=== PATIENT | female | born 1940 | race Caucasian/White ===

== ENCOUNTER 2020-05-01 10:37 | Outpatient (CLI) | payer MEDICARE, OTHER, SELFPAY ==
--- NOTE | ~2020-05-01 | MR_ITS ---
EXAMINATION: MR lumbar spine wo/w con DATE: 05/01/2020 11:57 INDICATION: Other intervertebral disc degeneration, lumbosacral. TECHNIQUE: Magnetic resonance imaging (MRI) of the lumbar spine was performed without and with 13 mL MultiHance intravenous contrast. Sequences included sagittal T2-weighted FSE, sagittal STIR FSE, and sagittal and axial T1-weighted FSE. Postcontrast sequences included axial T2-weighted FSE and axial a nd sagittal T1-weighted FS FSE. COMPARISON: Lumbar spine MRI 04/07/2017, 11/11/2014 FINDINGS: There is 12 degrees dextroscoliosis of thoracolumbar spine. There are changes of posterior fusion procedure from L3 to L5 with pedicle screws. There are changes of anterior fusion procedures a t L3-L4 and L4-L5 with interbody devices. There are hemangiomas in T10, T11, and T12 vertebral bodies . There is moderately decreased disc height at L1-L2 and severely decreased disc height at L2-L3. The distal spinal cord signal intensity is normal. The conus medullaris is at L1. There is peripheral di splacement of the cauda equina from L4 to S1 without change from 11/11/2014, consistent with arachnoid itis. The following disc levels are specifically discussed: L1-L2: The disc is bulging, asymmetric to the left. There is mild bilateral facet joint osteoarthriti s. There is mild bilateral neural foraminal stenosis. There is mild central canal stenosis. L2-L3: The disc is bulging. There is moderate right and mild left facet joint osteoarthritis. There i s mild bilateral neural foraminal stenosis. There is mild central canal stenosis. L3-L4: There is no facet joint hypertrophy. There is no neural foraminal stenosis. There is no centra l canal stenosis. L4-L5: There is mild left facet joint hypertrophy. There is mild bilateral neural foraminal stenosis. There is no central canal stenosis. L5-S1: The disc does not extend beyond the endplate margin. There is severe bilateral facet joint ost eoarthritis. There is no neural foraminal stenosis. There is no central canal stenosis. IMPRESSION: 1. Severe lumbar spondylosis, stable from 11/11/2014. 2. Arachnoiditis, stable from 11/11/2014. Reviewed, dictated and finalized at location A. NT EXPERIENCE CONSULTANT
[2020-05-01 11:23] LABS: Estimated Glomerular Filt Rate > 60
== END 2020-05-01 10:38 | disposition home or self-care (01) ==
PROVIDERS: PCP Family Medicine; Visit Provider Family Medicine
DX: M51.37 Other intervertebral disc degeneration, lumbosacral region (principal); M47.896 Other spondylosis, lumbar region
CPT/HCPCS: 72158; A9577

== ENCOUNTER 2021-06-14 08:17 | Emergency (ER) | payer MEDICARE, OTHER, SELFPAY ==
[2021-06-14 08:32] VITALS: BP 144/73; PULSE 106; RESP 20; TEMP 36.7; O2SAT 96
--- NOTE | 2021-06-14 09:19 | ED.URI ---
HPI - URI/Sore Throat General Chief Complaint: Upper Respiratory Infection Stated Complaint: headache nausea achey difficult breathing Source: patient and RN notes reviewed Mode of arrival: ambulatory History of Present Illness HPI Narrative: This is a 80-year-old female who presented to urgent care with complaints of a headache, diarrhea nausea, indigestion, body aches, shortness of breath and a productive cough with blood-tinged sputum that started yesterday. Ready to patient she took Protonix at home along with Tylenol and Compazine. Patient did note that she is having some shortness of breath. Patient tested for influenza which is negative also be tested for Covid PCR. Related Data Home Medications Medication Instructions Recorded Confirmed metoprolol tartrate 25 mg tablet 37.5 mg PO DAILY tablet 06/23/19 06/14/21 torsemide 20 mg tablet 20 mg PO QAM 04/27/21 06/14/21 Allergies Allergy/AdvReac Type Severity Reaction Status Date / Time adhesive tape Allergy Intermediate Rash Verified 06/14/21 09:06 diazepam Allergy Intermediate HYPERACTIVE Verified 06/14/21 09:06 /ANXIETY pregabalin [From Lyrica] AdvReac Mild Depression Verified 06/14/21 09:06 lansoprazole AdvReac Unknown Nausea Verified 06/14/21 09:06 trazodone AdvReac Unknown Unknown Verified 06/14/21 09:06 warfarin AdvReac Unknown Unknown Verified 06/14/21 09:06 Review of Systems Review of Systems: A 14 organ system Review of Systems was performed and pertinent positives included in the HPI, otherwise remaining ROS is negative. [facility] Past Medical History Medical History Acute cystitis Anxiety BMI 26.0-26.9,adult BMI 27.0-27.9,adult Chronic pain Cramps of lower extremity Depression with anxiety Disc disease, degenerative, lumbar or lumbosacral Essential (primary) hypertension GERD (gastroesophageal reflux disease) Heart disease High cholesterol HTN (hypertension) Hyperlipidemia, unspecified Lung cancer Need for vaccination Neuropathy involving both lower extremities Paroxysmal atrial fibrillation Primary osteoarthritis of both hips Restless leg syndrome Vitamin D deficiency, unspecified Surgical History Surgical History History of angiography 1998 History of laparoscopic cholecystectomy 2002 History of lobectomy of lung Right upper lung due to lung cancer History of lumbar fusion Per Patient extensive lumbar back surgery History of lumpectomy of right breast Excisional biopsy History of total abdominal hysterectomy 1986 at [facility] Hx of bilateral cataract extraction Hx of hemorrhoidectomy 2007 [facility] Hx of lipoma Large abdominal Lipoma Family History Family History Sibling Cerebrovascular accident Family history of lymphoma Skin cancer Mother Family history of lymphoma Family history of coronary artery disease Father Family history of Alzheimer's disease Hypertension Son History of coronary artery bypass surgery Daughter Ulcerative colitis Social History Social History Smoking packs per day: 1 Smoking cigarettes per day: 20.0 Years smoked: 30 Smoking pack-years: 30.00 Tobacco type: cigarettes Second hand tobacco smoke exposure: No Alcohol intake: never Substance use: never Substance use type: does not use 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 HEAD: normocephalic, atraumatic. EYES: PERRL. Sclera clear/white. Vision is grossly intact. EARS: External ears normal, auditory canals clear and without drainage, TMs normal without perforation. Hearing grossly intact. NOSE: External nose normal wi
== END 2021-06-14 09:36 | disposition home or self-care (01) ==
PROVIDERS: Emergency Provider Nurse Practitioner; PCP Family Medicine
DX: B34.9 Viral infection, unspecified (principal); I10 Essential (primary) hypertension; K21.9 Gastro-esophageal reflux disease without esophagitis; E78.00 Pure hypercholesterolemia, unspecified; E78.5 Hyperlipidemia, unspecified; G62.9 Polyneuropathy, unspecified; I48.0 Paroxysmal atrial fibrillation; M16.0 Bilateral primary osteoarthritis of hip; G25.81 Restless legs syndrome; E55.9 Vitamin D deficiency, unspecified; Z85.118 Personal history of other malignant neoplasm of bronchus and lung; Z90.2 Acquired absence of lung [part of]; M51.36 Other intervertebral disc degeneration, lumbar region; M51.37 Other intervertebral disc degeneration, lumbosacral region; F17.210 Nicotine dependence, cigarettes, uncomplicated; Z98.42 Cataract extraction status, left eye; Z98.41 Cataract extraction status, right eye
CPT/HCPCS: 87804; 99213; G0463

== ENCOUNTER → 2021-06-15 02:38 | Outpatient (CLI) | payer MEDICARE, OTHER, SELFPAY ==
[2021-06-16 03:58] LABS: SARS-CoV-2 RNA PCR Negative
== END ==
PROVIDERS: PCP Family Medicine; Visit Provider Nurse Practitioner
DX: R68.89 Other general symptoms and signs (principal); Z20.822 Contact with and (suspected) exposure to COVID-19
CPT/HCPCS: C9803; U0003; U0005

== ENCOUNTER 2021-06-17 04:52 | Inpatient (IN) | payer MEDICARE, OTHER, SELFPAY ==
[2021-06-17] VITALS (105 sets, daily range): BP systolic 93–148; BP diastolic 40–112; PULSE 101–230; RESP 16–46; TEMP 36.9; O2SAT 88–100; BMI 29.1
--- NOTE | ~2021-06-17 | XR_ITS ---
EXAMINATION: XR chest 1V portable EXAM DATE: 06/17/2021 05:49 INDICATION: SOA . Shortness of air. TECHNIQUE: Portable AP frontal chest x-ray was obtained. Correlation is made to CT chest 06/13/2018. FINDINGS: There was right upper lobe mass on prior chest CT 2017. Reportedly patient has had interval lobectomy. There is dense right upper lobe consolidation which could be bacterial pneumonia. Blunted right costophrenic recess, probably small to moderate pleural effusion but may have chronic blunting as well from partial pneumonectomy. Left lung is clear. The cardiomediastinal silhouette is prominen t but magnified on this AP technique. There is no pneumothorax suspected. There are mild bony degener ative changes. IMPRESSION: 1. Dense right upper lobe consolidation, probably bacterial pneumonia. Other etiologies, underlying c ancer not excludable. 2. Small to moderate right pleural effusion. Reviewed, dictated and finalized at location A. RTISING SALES EXECUTIVE IMPRESSION: 1. Dense right upper lobe consolidation, probably bacterial pneumonia. Other et iologies, underlying cancer not excludable. 2. Small to moderate right pleural effusion.
--- NOTE | ~2021-06-17 | CT_ITS ---
EXAMINATION: CTA chest PE abdomen pel EXAM DATE: 06/17/2021 08:41 INDICATION: Dense right upper lobe consolidation. TECHNIQUE: Spiral CTA of the chest (pulmonary arteries) was performed with 100 cc Omnipaque 350 intr avenous contrast injection. Images were acquired during the pulmonary arterial phase. Coronal maxi mum intensity projection 3D-reconstructions were created by the technologist on dedicated workstation . Axial, coronal and sagittal reformatted images were reviewed. Spiral CT of the abdomen and pelvis was then performed with the same intravenous contrast injection. Axial, coronal and sagittal reform atted images were reviewed. The dose-length product (DLP) for this examination was 1134.51 mGy-cm. The exposure was tailored according to patient size (auto mA exposure control), and iterative recons truction (ASIR) was used as additional dose reduction technique. There is no prior study for compari son. FINDINGS: CHEST: Pulmonary arteries are well opacified and without intraluminal filling defects. No thoracic aortic dissection. There may be right upper lobectomy, resection of previously seen right upper lob e mass. There is dense consolidation in the right middle lobe, multifocal right perihilar airspace di sease. The left lung has small amount of pneumonitis. Probably bacterial pneumonia. Underlying cancer not excludable. Clinical correlation and follow-up to resolution is indicated. There is small to mod erate right pleural effusion with adjacent segmental right lower lobe atelectasis. There is mild emph ysema. Tracheobronchial tree is patent. There is no mediastinal, hilar or axillary lymphadenopathy . There is no pneumothorax. There is cardiomegaly. There is moderate coronary arterial calcifica tion, arterial sclerosis. ABDOMEN PELVIS: Small regions of liver and right renal scarring. Lobular splenic tissue. Adrenal gla nds, pancreas are unremarkable. Gallbladder not identified, patient likely has had cholecystectomy. Portal and splenic veins are patent. Kidneys enhance symmetrically. There is no hydronephrosis. The uterus is not identified and has likely been surgically resected. The bladder is unremarkable. There is no retroperitoneal or pelvic lymphadenopathy. There is moderate scattered arteriosclerotic disease. The appendix is normal. There is ascending and transverse colonic submucosal fatty deposition could i ndicate history of chronic inflammation, but no acute edema on this exam. There is mild sigmoid colon ic diverticulosis. There is no adjacent inflammatory change to suggest diverticulitis. The stomach a nd small bowel are unremarkable. There is expected amount of colonic stool. No free intraperitonea l gas. Several thoracic vertebral body hemangiomas. There is lumbar fusion L3-5. IMPRESSION: 1. Probable right upper lobectomy. Dense right middle lobe and perihilar consolidation probably bact erial pneumonia. Follow-up to resolution is indicated to exclude underlying cancer recurrence. 2. Small to moderate right pleural effusion with adjacent segmental atelectasis. 3. Mild colonic diverticulosis. Other chronic abdominal findings. 4. Mild emphysema. 5. No pulmonary emboli. Reviewed, dictated and finalized at location A. FITTER IMPRESSION: 1. Probable right upper lobectomy. Dense right middle lobe and perihilar conso lidation probably bacterial pneumonia. Follow-up to resolution is indicated to exclude underlying cancer recurrence. 2. Small to moderate right pleural effusion with adjacent segmental atelectasi s. 3. Mild colonic diverticulosis. Other chronic abdominal findings. 4. Mild emphysema. 5. No pulmonary emboli.
--- NOTE | ~2021-06-17 | XR_ITS ---
EXAMINATION: XR chest 1V portable EXAM DATE: 06/18/2021 18:15 INDICATION: Shortness of breath. Right upper lobectomy. TECHNIQUE: Portable AP frontal chest x-ray was obtained. Comparison is made to prior examination from 06/17/2021. FINDINGS: There is cardiomegaly. Dense right upper lung zone consolidation again noted. Development o f moderate amount of left-sided airspace disease as well. No pneumothorax. Small to moderate right pl eural effusion. There are bony degenerative changes. IMPRESSION: 1. Persistent dense right upper lung zone pneumonia. 2. Progression of now moderate left-sided pneumonia. 3. Small to moderate right pleural effusion. 4. Cardiomegaly. Reviewed, dictated and finalized at location A. INUITY TESTER
--- NOTE | 2021-06-17 05:02 | ECG_ITS ---
Measurements Intervals [place] Rate: 227 P: NM: 0 QRS: 3 QRSD: 124 T: 115 QT: 181 QTc: 352 Interpretive Statements ATRIAL FIBRILLATION WITH RAPID VENTRICULAR RESPONSE VENTRICULAR PREMATURE COMPLEX LEFT BUNDLE BRANCH BLOCK BASELINE WANDER- III, AVF, V3, V6 ABNORMAL ECG Electronically Signed On 06-17-2021 7:25:28 CLAIM TAKER by Francisco Walker D.O.
--- NOTE | 2021-06-17 05:05 | PC.NURSE ---
15 mg diltiazem administered per [facility] Dr. Ramirez at 0500.
--- NOTE | 2021-06-17 05:11 | PC.NURSE ---
10 mg diltiazem given per TUNDE ANDERSON at this time.
--- NOTE | 2021-06-17 05:17 | PC.NURSE ---
Diltiazem drip 5 mg/hr per ERP James ANDERSON at this time.
[2021-06-17 05:24] LABS: Hematocrit 38.3 % (37.0-47.0); Hemoglobin 12.8 g/dL (12.0-15.0); Mean Corpuscular HGB Conc 33.4 g/dl (32-36); Mean Corpuscular Hemoglobin 31.4 pg (26-34); Mean Corpuscular Volume 94.1 fl (80-100); Mean Platelet Volume 11.4 fl (7.4-10.4); Platelet Count Result 321 k/mm3 (150-375); Red Blood Count 4.07 M/mm3 (4.2-5.4); Red Cell Distribution Width 15.6 % (11.5-14.5); White Blood Count 37.4 K/mm3 (4.5-10.0)
[2021-06-17] MEDS: dilTIAZem HCl INJ 25 MG/5 ML VIAL 10 MG IV PUSH (05:25)
[2021-06-17] MEDS: dilTIAZem 100 MG/100 ML 100 MG/100 ML BAG (05:26)
[2021-06-17] MEDS: dilTIAZem HCl INJ 25 MG/5 ML VIAL 15 MG IV PUSH (05:28)
[2021-06-17 05:35] LABS: INR 1.5; Prothrombin Time 17.8 Seconds (11.1-14.7)
[2021-06-17 05:36] LABS: Partial Thromboplastin Time 38.3 SECONDS (22.3-36.8)
--- NOTE | 2021-06-17 05:36 | PC.NURSE ---
Per EDP Dr Ramirez at bedside - fluid bolus initiated at KVO. NS infusing.
--- NOTE | 2021-06-17 05:42 | ED.GENADULT ---
HPI - General Adult General Chief complaint: Shortness of Breath/Dyspnea <Humberto Ramirez MD - Last Filed: 06/17/21 07:39> Stated complaint: dyspnea, tachycardia, myalgias <Humberto Ramirez MD - Last Filed: 06/17/21 07:39> Time Seen by Provider: 06/17/21 04:53 <Humberto Ramirez MD - Last Filed: 06/17/21 07:39> History of Present Illness HPI narrative: Patient is a 80-year-old female who presents ER by EMS for shortness of breath. Patient has recently been suffering from a infectious illness. She was seen in urgent care and had a negative Covid test. Patient has been having fevers at home has also been having cough. She worsened tonight and called for an ambulance. In route patient was found to have heart rate in the 230s. She received adenosine x1 which slowed her heart rate but then it immediately came back up to the 200s. Patient cannot identify aggravating or alleviating factors. She is on torsemide at home and takes metoprolol 37.5 mg daily. <Humberto Ramirez MD - Last Filed: 06/17/21 07:39> Related Data Home medications: Home Medications Medication Instructions Recorded Confirmed metoprolol tartrate 25 mg tablet 37.5 mg PO DAILY tablet 06/23/19 06/14/21 torsemide 20 mg tablet 20 mg PO QAM 04/27/21 06/14/21 ezetimibe-simvastatin [Vytorin tablet DAILY 06/17/21 10-40] rivaroxaban [Xarelto] mg 06/17/21 <Humberto Ramirez MD - Last Filed: 06/17/21 07:39> Allergies/adverse reactions: Allergies Allergy/AdvReac Type Severity Reaction Status Date / Time adhesive tape Allergy Intermediate Rash Verified 06/17/21 05:29 diazepam Allergy Intermediate HYPERACTIVE Verified 06/17/21 05:29 /ANXIETY pregabalin [From Lyrica] AdvReac Mild Depression Verified 06/17/21 05:29 lansoprazole AdvReac Unknown Nausea Verified 06/17/21 05:29 trazodone AdvReac Unknown Unknown Verified 06/17/21 05:29 warfarin AdvReac Unknown Unknown Verified 06/17/21 05:29 <Humberto Ramirez MD - Last Filed: 06/17/21 07:39> Review of Systems Review of Systems: ROS unobtainable: Yes unobtainable due to medical condition <Humberto Ramirez MD - Last Filed: 06/17/21 07:39> COUNT INCLUDES THE [facility] Past Medical History Medical History: Medical History Acute cystitis Anxiety BMI 26.0-26.9,adult BMI 27.0-27.9,adult Chronic pain Cramps of lower extremity Depression with anxiety Disc disease, degenerative, lumbar or lumbosacral Essential (primary) hypertension GERD (gastroesophageal reflux disease) Heart disease High cholesterol HTN (hypertension) Hyperlipidemia, unspecified Lung cancer Need for vaccination Neuropathy involving both lower extremities Paroxysmal atrial fibrillation Primary osteoarthritis of both hips Restless leg syndrome Vitamin D deficiency, unspecified <Humberto Ramirez MD - Last Filed: 06/17/21 07:39> Surgical History Surgical History: Surgical History History of angiography 1998 History of laparoscopic cholecystectomy 2002 History of lobectomy of lung Right upper lung due to lung cancer History of lumbar fusion Per Patient extensive lumbar back surgery History of lumpectomy of right breast Excisional biopsy History of total abdominal hysterectomy 1986 at [facility] Hx of bilateral cataract extraction Hx of hemorrhoidectomy 2007 [facility] Hx of lipoma Large abdominal Lipoma <Humberto Ramirez MD - Last Filed: 06/17/21 07:39> Family History Family History: Family History Sibling Cerebrovascular accident Family history of lymphoma Skin cancer Mother Family history of lymphoma Family history of coronary artery disease Father Family history of Alzheimer's disease Hypertension Son History of coronary artery bypass surgery Daughter Ulcerative colitis <Layla Washington
[2021-06-17] MEDS: SODIUM CHLORIDE 0.9% IV 1,000 ML 999 ML IV CONT ×2 (05:53→05:57)
[2021-06-17 05:58] LABS: Band Neutrophils Percent 9 % (0-6); Lymphocytes Absolute Manual 5.23 K/mm3 (1.1-4.5); Metamyelocytes Percent 3 %; Monocytes Absolute Manual 1.49 K/mm3 (0.1-0.90); Monocytes Percent Manual 4 % (3-9); Neutrophils Absolute Manual 29.54 K/mm3 (1.7-7.2); Neutrophils Percent Manual 70 % (46-73); Total Cells Counted 100
[2021-06-17 05:59] LABS: Anisocytosis 1+ (NORMAL); Atypical Lymphocytes Present; Platelet Estimate Adequate (Adequate)
[2021-06-17 06:03] LABS: Lactic Acid Reflex 10.8 mmol/L (0.7-2.1)
[2021-06-17] MEDS: PIPERACILLIN/TAZOBACTAM SOD 4.5 GM in SODIUM CHLORIDE 0.9% IV 100 ML 200 ML IVPB (06:29)
--- NOTE | 2021-06-17 07:00 | PC.NURSE ---
Assumed care of pt. at this time. report from MICHAEL Jones.
[2021-06-17] MEDS: AMIODARONE 150 MG/D5W 100 ML 150 MG/100 ML BAG 600 MG IV CONT (07:32)
[2021-06-17 07:52] LABS: Albumin Level 3.1 g/dL (3.5-5.1); Alkaline Phosphatase 277 U/L (38-126); Anion Gap 17 mmol/L (8-16); Aspartate Amino Transferase 287 U/L (14-36); Bilirubin,Total 1.2 mg/dL (0.2-1.3); Blood Urea Nitrogen 19 mg/dL (7-17); Calcium 8.8 mg/dL (8.4-10.2); Carbon Dioxide 15 mmol/L (22-30); Chloride 104 mmol/L (98-107); Estimated Glomerular Filt Rate 43; Glucose 152 mg/dL (65-110); Potassium 2.9 mmol/L (3.4-5.0); Sodium 136 mmol/L (137-145)
[2021-06-17 07:59] LABS: NT Pro B Type Natriuretic Pept 4530 pg/mL (5-100); Troponin I 0.237 ng/mL (0.000-0.034)
[2021-06-17 08:20] LABS: Reflex Lactic Acid Yes or No Add Lactic
[2021-06-17 08:20] LABS: CRP > 45.0 mg/dL (<1.0)
[2021-06-17 08:34] LABS: Alanine Aminotransferase 116 U/L (4-35)
--- NOTE | 2021-06-17 09:02 | PC.NURSE ---
ERP requesting Pt. be weened off of bipap. ED respiratory called
[2021-06-17 09:10] LABS: Lactic Acid 5.6 mmol/L (0.7-2.1)
[2021-06-17] MEDS: AMIODARONE 360 MG/D5W 200 ML 360 MG/200 ML BAG 33.33 MG IV CONT (09:24)
--- NOTE | 2021-06-17 09:52 | PC.NURSE ---
Pt. vancomycin had a hole in the bag resulting in a late med.
[2021-06-17] MEDS: ALBUTEROL SULFATE NEB 2.5 MG/3 ML INH INHALATION ×2 (10:07→19:02)
[2021-06-17] MEDS: HYDROcodone/acetaminophen (*CRX) 5-325 MG TABLET 1 TAB PO (12:07)
[2021-06-17 12:26] LABS: EDCOVIDSCREEN Negative (Negative)
[2021-06-17 12:53] LABS: Hematocrit 34.3 % (37.0-47.0); Hemoglobin 11.5 g/dL (12.0-15.0); Mean Corpuscular HGB Conc 33.5 g/dl (32-36); Mean Corpuscular Hemoglobin 30.9 pg (26-34); Mean Corpuscular Volume 92.2 fl (80-100); Mean Platelet Volume 11.3 fl (7.4-10.4); Platelet Count Result 256 k/mm3 (150-375); Red Blood Count 3.72 M/mm3 (4.2-5.4); Red Cell Distribution Width 15.8 % (11.5-14.5); White Blood Count 28.3 K/mm3 (4.5-10.0)
[2021-06-17 12:53] LABS: INR 1.9
[2021-06-17 12:54] LABS: Partial Thromboplastin Time 41.1 SECONDS (22.3-36.8)
[2021-06-17 13:08] LABS: Lactic Acid Reflex 8.4 mmol/L (0.7-2.1)
[2021-06-17 13:31] LABS: Alanine Aminotransferase 563 U/L (4-35); Albumin Level 3.3 g/dL (3.5-5.1); Alkaline Phosphatase 241 U/L (38-126); Anion Gap 17 mmol/L (8-16); Bilirubin,Total 1.4 mg/dL (0.2-1.3); Blood Urea Nitrogen 21 mg/dL (7-17); Calcium 8.1 mg/dL (8.4-10.2); Carbon Dioxide 15 mmol/L (22-30); Chloride 100 mmol/L (98-107); Estimated CRCL calculation 34 ml/min; Estimated Glomerular Filt Rate 43; Glucose 237 mg/dL (65-110); Potassium 3.4 mmol/L (3.4-5.0); Sodium 132 mmol/L (137-145)
[2021-06-17 13:44] LABS: CRP 41.9 mg/dL (<1.0)
[2021-06-17 13:45] LABS: Aspartate Amino Transferase 1610 U/L (14-36)
[2021-06-17 13:52] LABS: Band Neutrophils Percent 10 % (0-6); Lymphocytes Absolute Manual 0.56 K/mm3 (1.1-4.5); Neutrophils Absolute Manual 27.73 K/mm3 (1.7-7.2); Neutrophils Percent Manual 88 % (46-73); Total Cells Counted 100
[2021-06-17 13:53] LABS: Burr Cells 2+ (NORMAL); Platelet Estimate Adequate (Adequate)
[2021-06-17 13:54] LABS: Poikilocytosis 1+ (NORMAL)
--- NOTE | 2021-06-17 13:59 | PM.CNCAR ---
Assessment and Plan Additional Plan - AFIB WITH RVR - severe sepsis most likely secondary to pneumonia *- lactic acidosis. - elevated liver enzymes this 80-year-old female with past history of atrial fibrillation on Xarelto and history of lung cancer that was treated by surgery couple years ago, who presents to the hospital with fever, chills, cough, shortness of breath and elevated lactic acid, leukocytosis and imaging suggestive of a right upper lobe pneumonia. At this time would recommend to continue IV amiodarone drip. She is expected to be bradycardic is due to a normal response to sepsis. Recommend to continue Xarelto. would hold off starting antihypertensives at this time until she is more stable. continue antibiotics. History of Present Illness History of Present Illness Consult date/time: date of service 06/17/21 13:59 Requesting physician: Arcadio Fuentes MD Consult reason: atrial fibrillation Reason For Visit: dyspnea, tachycardia, myalgias Narrative: this 80-year-old female who follows up with Dr. montero and who has a past medical history of atrial fibrillation, history of lung cancer status post upper right lobectomy with no chemoradiation, history of balloon angioplasty who comes to the ED feeling sick for about a week. She did have fevers, congestion, cough, was seen in an urgent care last week and tested negative for COVID. Apparently arrived on 6 L oxygen to the emergency room, was saturating 88% on room air . she was experiencing central chest pain however her heart rate was reported to be 220 beats per minute when she arrived and was in AFib with RVR. Was given IV diltiazem, 2 L of normal saline, and apparently adenosine as well. currently her heart rate 120 beats per minute and in AFib. She is resting comfortably in bed and denies chest pain at this time. She still should feeling short of breath however is much better with the oxygen. Denied lower limb edema, dizziness or syncope. on review of investigations she was noticed to have elevated lactic acid at 10.8, and then 8.5. evidence of acute kidney injury with creatinine 1.2 and baseline 0.8 elevated liver enzymes with AST 1600 and ALT 560, elevated proBNP at 4000 WBC 37K CTA CHEST ,ABD:1. Probable right upper lobectomy. Dense right middle lobe and perihilar consolidation probably bacterial pneumonia. Follow-up to resolution is indicated to exclude underlying cancer recurrence. 2. Small to moderate right pleural effusion with adjacent segmental atelectasis. 3. Mild colonic diverticulosis. Other chronic abdominal findings. 4. Mild emphysema. 5. No pulmonary emboli. Review of Systems Constitutional: Constitutional: Reports chills, Reports fever(s) and Reports poor appetite Eyes: Eyes: Denies eye discharge, Denies loss of vision, Denies eye pain and Denies photophobia ENT: Denies dizziness, Denies epistaxis, Denies nasal congestion and Denies sore throat Cardiovascular: Cardiovascular: Reports chest pain, Denies syncope, Denies pedal edema, Denies leg edema, Reports palpitations, Reports dyspnea, Reports dyspnea on exertion and Denies orthopnea Respiratory: Respiratory: Reports cough, Reports dyspnea, Reports dyspnea on exertion and Denies wheezing Gastrointestinal: Gastrointestinal: Denies abdominal pain, Denies diarrhea, Denies nausea and Denies vomiting Genitourinary: Genitourinary: Denies hematuria, Denies genital lesions and Denies dysuria Musculoskeletal: Musculoskeletal: Denies arthralgias, Denies joint swelling and Denies numbness Integumentary/Breasts: Skin/Breast: Denies pruritus and Denies rash Neurologic: Denies dizziness, Denies syncope, Denies loss of vision and Denies numbness Psychiatric: Psychiatric: Denies anxiety and Denies depression Endocrine: Endocrine: Denies cold intolerance, Denies heat intolerance and Denies palpitations Hematologic/Lymphatic: Hematologic/Lymphatic: Denies easy bleeding and De
[2021-06-17] MEDS: SODIUM CHLORIDE 0.9% IV 1,000 ML 125 ML IV CONT (14:01)
[2021-06-17 15:02] LABS: Troponin I 0.455 ng/mL (0.000-0.034)
[2021-06-17] MEDS: AMIODARONE 360 MG/D5W 200 ML 360 MG/200 ML BAG 16.67 MG IV CONT ×2 (15:30→22:04)
[2021-06-17 15:58] LABS: Lactic Acid Reflex 4.1 mmol/L (0.7-2.1)
--- NOTE | 2021-06-17 16:09 | PM.IMHP ---
H&P: HPI History of Present Illness Date/Time: 06/17/21 16:09 Chief Complaint: Shortness of breath Narrative: this is 72-year-old female who presents to the ER via EMS for shortness of breath. She has been feeling sick since past week or so. She went to urgent care and was suggested to get a COVID test which she did the next day and was came back negative. She has been having fever and having cough. She progressive got worse with worsening shortness of breath and hence came to the ER via EMS. Upon EMS arrival she was noted to have heart rate of 150s to 200s. She was given a dose of adenosine. She does have history of atrial fibrillation and follows with Dr. Dixon. She is also on anticoagulation with Xarelto. She was also reports dizziness and lightheadedness. Denies any chest pain currently but she reported chest pain earlier when her heart rate was up. She was given IV diltiazem to L of normal saline and ultimately was started on amiodarone drip. The initial heart rate reported on arrival was 230. Upon evaluation she was found to have elevated lactic acid 10.8. Hypoxia noted on placed on oxygen supplementation. Will also do temporarily placed on BiPAP on arrival. see also has elevated liver enzymes. WBC count of 37,000. CTA chest abdomen showed dense right middle lobe and perihilar consultation probably bacterial with the small to moderate right pleural effusion with adjacent subsegmental atelectasis. No PE. She was tested COVID negative earlier this week. Past medical history atrial fibrillation history of lung cancer status post right upper lobectomy with no chemoradiation coronary artery disease status post balloon angioplasty in the past chronic back pain His ascites is getting admitted for further evaluation and management Review of Systems Review of Systems: - CONSTITUTIONAL: Denies weight loss, reports fever and chills. - HEENT: Denies changes in vision and hearing - RESPIRATORY: reports SOB and cough. - CV: Denies palpitations and CP. - GI: Denies abdominal pain, nausea, vomiting and diarrhea. - : Denies dysuria and urinary frequency. - MSK: reports myalgia and denies joint pain. - SKIN: Denies rash and pruritus. - NEUROLOGICAL: Denies headache and syncope. - PSYCHIATRIC: Denies recent changes in mood. Denies anxiety and depression. All systems reviewed & are unremarkable except as noted in HPI and below Constitutional: Constitutional: Reports fatigue and Reports weakness Neurologic: Reports weakness Endocrine: Endocrine: Reports fatigue [facility] Past Medical History Medical History Acute cystitis Anxiety BMI 26.0-26.9,adult BMI 27.0-27.9,adult Chronic pain Cramps of lower extremity Depression with anxiety Disc disease, degenerative, lumbar or lumbosacral Essential (primary) hypertension GERD (gastroesophageal reflux disease) Heart disease High cholesterol HTN (hypertension) Hyperlipidemia, unspecified Lung cancer Need for vaccination Neuropathy involving both lower extremities Paroxysmal atrial fibrillation Primary osteoarthritis of both hips Restless leg syndrome Vitamin D deficiency, unspecified Surgical History Surgical History History of angiography 1998 History of laparoscopic cholecystectomy 2002 History of lobectomy of lung Right upper lung due to lung cancer History of lumbar fusion Per Patient extensive lumbar back surgery History of lumpectomy of right breast Excisional biopsy History of total abdominal hysterectomy 1986 at [facility] Hx of bilateral cataract extraction Hx of hemorrhoidectomy 2007 [facility] Hx of lipoma Large abdominal Lipoma Family History Family History Sibling Cerebrovascular accident Family history of lymphoma Skin cancer Mother Family history of lymphoma
[2021-06-17] MEDS: DOXYCYCLINE IV 100 MG in SODIUM CHLORIDE 0.9% IV 100 ML IVPB (17:58)
--- NOTE | 2021-06-17 18:00 | PC.NURSE ---
Pt. urinated in bed. RN cancelled cath.
[2021-06-17] MEDS: RIVAROXABAN 20 MG TABLET PO (18:58)
[2021-06-17] MEDS: HYDROcodone/acetaminophen (*CRX) 10-325 MG TABLET 1 TAB PO (18:58)
--- NOTE | 2021-06-17 19:50 | ADMGEN ---
This patient, Zainab Stuart, was admitted to IMU Room 201-01. Patient/family oriented to hospital policies and general routines including ID bracelet, bed and alarms, visiting hours, pain management, procedures, bathroom and other care routines, personal items, smoking policy, room service/diet, and visiting hours. Information on how to activate the Rapid Response Team has been discussed. Patient/Family are encouraged to report perceived risks to care and to ask questions if they do not understand what they are told or what they should do.
[2021-06-18] VITALS (23 sets, daily range): BP systolic 107–153; BP diastolic 43–95; PULSE 80–147; RESP 16–40; TEMP 36.3–37.1; O2SAT 91–100
[2021-06-18] MEDS: rOPINIRole HCL 1 MG TABLET 4 MG PO ×2 (02:14→20:43)
[2021-06-18] MEDS: TEMAZEPAM (*CRX) 15 MG CAPSULE PO (02:14)
[2021-06-18] MEDS: HYDROcodone/acetaminophen (*CRX) 10-325 MG TABLET 1 TAB PO ×5 (02:14→21:02)
[2021-06-18] MEDS: AMIODARONE 360 MG/D5W 200 ML 360 MG/200 ML BAG 16.67 MG IV CONT (04:26)
[2021-06-18 05:38] LABS: Hematocrit 33.1 % (37.0-47.0); Hemoglobin 11.2 g/dL (12.0-15.0); Mean Corpuscular HGB Conc 33.8 g/dl (32-36); Mean Corpuscular Hemoglobin 30.5 pg (26-34); Mean Corpuscular Volume 90.2 fl (80-100); Mean Platelet Volume 11.6 fl (7.4-10.4); Platelet Count Result 292 k/mm3 (150-375); Red Blood Count 3.67 M/mm3 (4.2-5.4); Red Cell Distribution Width 15.9 % (11.5-14.5); White Blood Count 33.8 K/mm3 (4.5-10.0)
[2021-06-18] MEDS: DOXYCYCLINE IV 100 MG in SODIUM CHLORIDE 0.9% IV 100 ML IVPB ×2 (06:24→17:26)
[2021-06-18 06:25] LABS: Alanine Aminotransferase 749 U/L (4-35); Albumin Level 3.1 g/dL (3.5-5.1); Alkaline Phosphatase 278 U/L (38-126); Anion Gap 14 mmol/L (8-16); Bilirubin,Total 0.8 mg/dL (0.2-1.3); Blood Urea Nitrogen 33 mg/dL (7-17); Carbon Dioxide 18 mmol/L (22-30); Chloride 99 mmol/L (98-107); Estimated CRCL calculation 20 ml/min; Estimated Glomerular Filt Rate 23; Glucose 148 mg/dL (65-110); Potassium 3.4 mmol/L (3.4-5.0); Sodium 131 mmol/L (137-145)
[2021-06-18 06:43] LABS: Aspartate Amino Transferase 2364 U/L (14-36)
[2021-06-18 07:08] LABS: Band Neutrophils Percent 16 % (0-6); Lymphocytes Absolute Manual 0.67 K/mm3 (1.1-4.5); Neutrophils Absolute Manual 33.12 K/mm3 (1.7-7.2); Neutrophils Percent Manual 82 % (46-73); Total Cells Counted 100
[2021-06-18 07:09] LABS: Large Platelets Present; Platelet Estimate Adequate (Adequate)
[2021-06-18 07:10] LABS: Burr Cells 1+ (NORMAL); Poikilocytosis 1+ (NORMAL)
[2021-06-18] MEDS: METOPROLOL TARTRATE 12.5 MG TABLET PO (07:52)
--- NOTE | 2021-06-18 11:15 | PM.PNCARD ---
Progress Note: A&P Additional Plan 80-year-old lady with paroxysmal atrial fibrillation previously just being controlled with beta-ree now with more persistent AFib and amiodarone IV was started yesterday. As of this morning she persists in atrial fib I will keep the IV amiodarone running hopefully this will convert her to sinus rhythm. If she persists in AFib electrical cardioversion will be considered on Monday. Her DNR status would have to be reversed for this procedure Raymon Das MD [facility] Subjective Date/time seen: Date of service: 06/18/21 11:15 Interval history: Follow-up visit in this 80-year-old lady with: Long history of paroxysmal atrial fibrillation now with AFib that seems to be more persistent. Admitted yesterday and placed on intravenous amiodarone. Heart rate was extremely fast on admission is now well controlled with amiodarone but persistent AFib. Patient appears to be comfortable upon entering the room was sleeping flat in bed with BiPAP mask on. Important comorbidities are chronic lung disease ongoing cigarette smoking and previous history of right upper lobe resection for carcinoma about 2 or 3 years ago. Exam Const: General: comfortable and no acute distress Other: Elderly lady flat in bed with BiPAP mask on sleeping. Upon arousal in no distress HENMT: Mouth: Yes moist mucous membranes Eyes: Sclera: sclerae normal Neck: Neck: supple and no JVD Resp: Other: Diminished tubular breath sounds in both lung rocha Cardio: Rhythm: abnormal rhythm irregularly irregular GI: GI Palp: Yes Soft to palpation Auscultation: normal bowel sounds Skin: General skin exam: normal color Neuro: Cognition (Neuro): normal cognition Extrem: General: normal to inspection Objective Data Vital Signs Vital Signs: Vital Signs - 24 hr 06/17/21 11:35 06/17/21 11:40 06/17/21 11:45 Temperature Pulse Rate 107 H 133 H 121 H Respiratory Rate 26 H 26 H 27 H Blood Pressure 115/82 117/82 Pulse Oximetry 98 98 97 06/17/21 12:00 06/17/21 12:01 06/17/21 12:15 Temperature Pulse Rate 141 H 136 H 134 H Respiratory Rate 20 27 H 28 H Blood Pressure 123/88 Pulse Oximetry 91 98 98 06/17/21 12:30 06/17/21 12:31 06/17/21 12:40 Temperature Pulse Rate 133 H 118 H 122 H Respiratory Rate 29 H 18 26 H Blood Pressure 126/77 119/71 Pulse Oximetry 97 97 97 06/17/21 12:45 06/17/21 13:00 06/17/21 13:01 Temperature Pulse Rate 127 H 130 H 122 H Respiratory Rate 26 H 25 H 25 H Blood Pressure 109/87 Pulse Oximetry 97 96 06/17/21 13:15 06/17/21 13:20 06/17/21 13:30 Temperature Pulse Rate 110 H 110 H 120 H Respiratory Rate 20 27 H 24 H Blood Pressure 114/75 Pulse Oximetry 96 96 06/17/21 13:40 06/17/21 13:45 06/17/21 14:00 Temperature Pulse Rate 125 H 116 H 125 H Respiratory Rate 25 H 24 H 27 H Blood Pressure 100/79 107/86 Pulse Oximetry 96 06/17/21 14:01 06/17/21 14:15 06/17/21 14:30 Temperature Pulse Rate 121 H 117 H 114 H Respiratory Rate 26 H 24 H 24 H Blood Pressure Pulse Oximetry 96 96 06/17/21 14:45 06/17/21 15:00 06/17/21 15:15 Temperature Pulse Rate 120 H 120 H 130 H Respiratory Rate 24 H 22 H 25 H Blood Pressure Pulse Oximetry 96 96 100 06/17/21 15:22 06/17/21 15:25 06/17/21 15:27 Temperature Pulse Rate 130 H 115 H Respiratory Rate 23 H Blood Pressure 132/88 124/81 Pulse Oximetry 97 97 06/17/21 15:30 06/17/21 15:40 06/17/21 15:45 Temperature Pulse Rate 125 H 118 H 112 H Respiratory Rate 20 20 24 H Blood Pressure 120/88 132/88 Pulse Oximetry 97 97 97 06/17/21 16:00 06/17/21 16:01 06/17/21 16:15 Temperature Pulse Rate 114 H 121 H 126 H Respiratory Rate 22 H 19 16 Blood Pressure 122/87 Pulse Oximetry 97 97 99 06/17/21 16:20 06/17/21 16:30 06/17/21 16:45 Temperature Pulse Rate 114 H 120 H 112 H Respiratory Rate 26 H 24 H 18 Blood Pressure 135/86 Pulse Oximetry 98 97 97 05/21
[2021-06-18] MEDS: RIVAROXABAN 20 MG TABLET PO (17:26)
[2021-06-18] MEDS: SODIUM CHLORIDE 0.9% IV 1,000 ML 125 ML IV CONT (17:29)
--- NOTE | 2021-06-18 17:49 | PM.IMPN ---
Progress Note: A&P Assessment and Plan (1) Severe sepsis: Code(s): A41.9 - Sepsis, unspecified organism; R65.20 - Severe sepsis without septic shock Status: Acute (2) Acute respiratory failure: Code(s): J96.00 - Acute respiratory failure, unspecified whether with hypoxia or hypercapnia Status: Acute (3) Pneumonia: Code(s): J18.9 - Pneumonia, unspecified organism Status: Acute (4) Lactic acidosis: Code(s): E87.2 - Acidosis Status: Acute (5) CIELO (acute kidney injury): Code(s): N17.9 - Acute kidney failure, unspecified Status: Acute (6) Elevated liver enzymes: Code(s): R74.8 - Abnormal levels of other serum enzymes Status: Acute (7) Paroxysmal atrial fibrillation: Code(s): I48.0 - Paroxysmal atrial fibrillation Status: Acute (8) Essential (primary) hypertension: Code(s): I10 - Essential (primary) hypertension Status: Acute (9) Hyperlipidemia, unspecified: Code(s): E78.5 - Hyperlipidemia, unspecified Status: Acute (10) Disc disease, degenerative, lumbar or lumbosacral: Code(s): M51.37 - Other intervertebral disc degeneration, lumbosacral region Status: Acute (11) Neuropathy involving both lower extremities: Code(s): G57.93 - Unspecified mononeuropathy of bilateral lower limbs Status: Acute Additional Plan Patient has been having fever and cough at home. On EMS evaluation, heart rate was 230 and she received adenosine for this. EKG showed a rate of 227 with AFib in RVR. EKG also shows left bundle branch block. Unclear if this is acute or chronic. Patient had leukocytosis to 37 K with bandemia and elevated liver enzymes all consistent with severe sepsis. CT scan shows a right upper lobe lobectomy, dense right middle lobe and perihilar consolidation consistent with bacterial pneumonia. She also has a small to moderate right pleural effusion but no pulmonary emboli. She developed acute kidney injury probably related to the severe tachycardia and sepsis and possibly from the contrast exposure. One blood culture has returned positive for Gram-positive cocci in clusters from anaerobic bottle only. Continue cefepime, doxycycline and vancomycin. Heart rate remains better controlled with the amiodarone. she did have severe lactic acidosis to 10.8 but this has normalized. LFTs continued to climb felt related to shock liver. Stop Tylenol. RN states patient has been able to come off BiPAP at times. Will continue to have her off BiPAP as she tolerates. Will start CPT. Repeat chest x-ray and check blood gas. repeat labs tonight. She is currently on Xarelto for her AFib which will continue. Discussed in detail with the maintenance shop clerk. 35 minutes spent on critical care time Subjective Date/time seen: 06/18/21 17:49 Interval history: 80yo female with AFib, HTN her for fever and cough. Assuming care. Chart reviewed. She is currently on BiPAP. RN states the patient has been on/off BiPAP all day o/w on 5-6L/min. She is difficult to understand. She is having a cough still. no CP. She feels SOB. Exam Narrative: AF 97.3 140/91 106 24 91% bipap Gen - No acute respiratory distress. She appears comfortable on BiPAP. Chest - Lungs are coarse anteriorly. CV - Irregularly irregular. Telemetry showing atrial fibrillation mostly controlled rate. Abd - Soft. Lower abdominal pain palpation. No guarding. Positive bowel sounds - Beal secured draining clear yellow urine. Ext - No pedal edema Psych - remains calm Skin - Warm and dry Objective Data Vital Signs Vital Signs: Vital Signs - 24 hr 06/17/21 18:00 06/17/21 18:01 06/17/21 18:15 Temperature Pulse Rate 128 H 125 H 139 H Respiratory Rate 23 H 24 H 29 H Blood Pressure 127/99 H Pulse Oximetry 99 98 98 06/17/21 18:30 06/17/21 18:45 06/17/21 19:00 Temperature Pulse Rate 138 H 136 H 118 H Respiratory Rate 28 H 26
[2021-06-18 18:28] LABS: Fractional Inspired Oxygen 52 %; HCO3 ABG 13.1 mEq/l (22.0-26.0); Oxygen Content ABG 15.3 %vol (16.0-22.0); Oxygen Saturation ABG 90.3 % (95.0-100.0); Oxyhemoglobin 88.4 % THb (90.0-100.0); PCO2 ABG 31.2 mmHg (35.0-45.0); PO2 ABG 66.8 mmHg (80.0-100.0); PO2 FiO2 Ratio Arterial Blood 1.28 %; Total Hemoglobin 12.3 g/dL (12.0-18.0)
[2021-06-18 18:31] LABS: Device HIGH FLOW NASAL CANN; Modified Allen's Test Pass; Site Drawn RIGHT RADIAL; pH ABG 7.242 (7.350-7.450)
[2021-06-18 18:36] LABS: Hematocrit 33.9 % (37.0-47.0); Hemoglobin 11.6 g/dL (12.0-15.0); Mean Corpuscular HGB Conc 34.2 g/dl (32-36); Mean Corpuscular Hemoglobin 31.1 pg (26-34); Mean Corpuscular Volume 90.9 fl (80-100); Mean Platelet Volume 11.2 fl (7.4-10.4); Platelet Count Result 343 k/mm3 (150-375); Red Blood Count 3.73 M/mm3 (4.2-5.4); Red Cell Distribution Width 16.2 % (11.5-14.5); White Blood Count 48.4 K/mm3 (4.5-10.0)
[2021-06-18 19:28] LABS: Lactic Acid Reflex 4.8 mmol/L (0.7-2.1)
[2021-06-18 19:55] LABS: Band Neutrophils Percent 10 % (0-6); Lymphocytes Absolute Manual 0.96 K/mm3 (1.1-4.5); Lymphocytes Percent Manual 2 % (18-44); Total Cells Counted 100
[2021-06-18 19:57] LABS: Burr Cells 1+ (NORMAL); Monocytes Absolute Manual 0.48 K/mm3 (0.1-0.90); Monocytes Percent Manual 1 % (3-9); Neutrophils Absolute Manual 46.94 K/mm3 (1.7-7.2); Neutrophils Percent Manual 87 % (46-73); Platelet Estimate Adequate (Adequate)
[2021-06-18 19:58] LABS: Ovalocytes 1+ (NORMAL)
[2021-06-18] MEDS: SODIUM BICARBONATE 8.4% 100 MEQ in DEXTROSE 5% 1,000 ML 1,000 ML 70 MEQ IV CONT (20:30)
[2021-06-18] MEDS: METOPROLOL TARTRATE 25 MG TABLET PO (20:42)
[2021-06-18] MEDS: SODIUM BICARBONATE 8.4% 50 MEQ/50 ML SYRINGE 100 MEQ IV PUSH (21:47)
[2021-06-18 22:04] LABS: Reflex Lactic Acid Yes or No Add Lactic
[2021-06-18] MEDS: ONDANSETRON INJ 4 MG/2 ML VIAL IV PUSH (22:05)
[2021-06-18 22:56] LABS: Lactic Acid 2.8 mmol/L (0.7-2.1)
[2021-06-19] VITALS: PULSE 75
--- NOTE | 2021-06-19 01:27 | PC.NURSE ---
Patient heart rate dropped in to 20's and was agonal breathing upon entering the room. Heart rate decreased to asystole. Domingo Jones, RN-Charge Nurse, and Manager Maintenance all at beside. Spoke with family members and made aware of the expiration. Family is on their way to beside. Patient at 0049 on 06/19/2021.
--- NOTE | 2021-06-19 04:48 | P.RRN_ITS ---
Critical Care Event Note Summary Code activated: Yes (But canceled as patient was DNR) Narrative: 06/19/2021 00:49 Patient had been admitted for severe sepsis/septic shock due to pneumonia complicated by multiple cor morbidities. The patient had acute hypoxic respiratory failure and had been on high-flow nasal cannula and BiPAP intermittently since admission. Despite broad-spectrum antibiotic therapy IV fluid hydration respiratory support and breathing treatments the patient's condi tion did not seem to be improving. In fact this after initial improvement in lactic acidosis and leukocytosis on the 1st day of admission the patient's lactic acidosis worsened overnight and white count increased significantly. The patient had persistent bandemia despite broad-spectrum antibiotic coverage. Patient was started on bicarb drip when ABG demonstrated severe metabolic acidosis. I ordered 2 amps of sodium bicarb. Despite acidosis patient's blood pressures actually remained stable. The patient had been markedly tachycardic for the most of the day on the . Around 10:00 p.m. the patient's heart rate went down to 91. And was 75 around midnight. Nursing staff noticed that the patient became precipitously bradycardic with pauses and rhythm and went to evaluate the patient. They found the patient unresponsive and apneic. Nursing staff did start CPR however when I arrived at the bedside I notified staff the patient was a DNR/DNI. Resuscitation efforts were discontinued. The patient's family was notified. 35 minute spent critical care activities. Due to a high probability of clinically significant, life threatening deterioration, the patient required my highest level of preparedness to intervene emergently and I personally spent this critical care time directly and personally managing the patient. This critical care time included obtaining a history; examining the patient; pulse oximetry; ordering and review of studies; arranging urgent treatment with development of a management plan; evaluation of patient's response to treatment; frequent reassessment; and discussions with other providers. It was exclusive of separately billable procedures and treating other patients and teaching time. Please see Assessment and Plan section and the rest of the note for further information on patient assessment and treatment. Critical care time: 30 - 74 mins
--- NOTE | 2021-06-19 05:57 | P.DN_ITS ---
Discharge Summary Date and Time Date of : 06/19/21 Time of : 00:49 Provider Pronounced By: javier cross Probable Cause of Probable Cause of : Septic shock Summary Hospital Course: 72-year-old female with history of AFib and lung CA s/p right upper lobectomy who presents complaints of shortness of breath, fever and cough for the past week prior to admission. COVID tested prior to admission was negative. upon EMS arrival, patient's heart rate was in the 200s she was given a dose of adenosine. EKG showing AFib with RVR with a rate of 227. She had left bundle branch block noted as well. She required BiPAP in the emergency room. She ultimately was placed on amiodarone drip control heart rate. CTA of the chest showed no pulmonary emboli but did show but upper lobe lobectomy with dense right middle lobe perihilar consolidation consistent with pneumonia. She was started on broad-spectrum IV antibiotics. She met severe sepsis criteria on admission. she had multi organ involvement with metabolic gap acidosis, lactic acid of 10.8, acute kidney injury, elevated troponins, and elevated liver enzymes. Given the multiorgan involvement, her mortality rate is exceedingly high. She was started on broad-spectrum IV antibiotics. She was given appropriate IV fluids. Renal function worsened and LFTs increased . Lactic acid normalized initially before worsening. She was started on IV fluids with bicarb. Blood cultures returned positive . Patient's heart rate was initially in the 130-140 range yesterday morning but for the remainder the day, heart rate was only mildly elevated until the late evening hours which began to become bradycardic with pauses. Nursing staff found the patient unresponsive apneic. CPR was started however patient is a DNR/ DNI thus resuscitation efforts were discontinued. Patient health practice manager hours June 19 2021. The pineda coffman was notified. Additional Data Confirmation of as documented by pronouncing clinician: Pupillary Reflex, Palpable Pulses, Response to Stimuli, Heart Tones and Breath Sounds Name of Provider Notified: dr rogers Time Provider Notified: 01:06 Provider Requests Autopsy: No Family Requests Autopsy: No Mattress Filler Notified: Yes Date [facility] Notified of : 06/19/21 Time [facility] Notified of : 01:12
== END 2021-06-19 00:49 | disposition expired | DRG 871 ==
LOC: ANHED 08:21 → ANHIMU 17:51
PROVIDERS: Emergency Medicine; Admitting Provider Internal Medicine; Emergency Provider Family Medicine; PCP Family Medicine; Visit Provider Internal Medicine
DX: J18.9 Pneumonia, unspecified organism (principal); A41.9 Sepsis, unspecified organism; J96.01 Acute respiratory failure with hypoxia; R65.21 Severe sepsis with septic shock; E87.2 Acidosis; N17.9 Acute kidney failure, unspecified; Z20.822 Contact with and (suspected) exposure to COVID-19; I48.0 Paroxysmal atrial fibrillation; I44.7 Left bundle-branch block, unspecified; F17.210 Nicotine dependence, cigarettes, uncomplicated; I10 Essential (primary) hypertension; E78.5 Hyperlipidemia, unspecified; M51.37 Other intervertebral disc degeneration, lumbosacral region; G57.93 Unspecified mononeuropathy of bilateral lower limbs; R77.8 Other specified abnormalities of plasma proteins; R74.8 Abnormal levels of other serum enzymes; Z66 Do not resuscitate; Z79.899 Other long term (current) drug therapy; Z85.118 Personal history of other malignant neoplasm of bronchus and lung; Z90.2 Acquired absence of lung [part of]
CPT/HCPCS: 36415; 36600; 71045; 71275; 74177; 80053; 82805; 83605; 83735; 83880; 84484; 85025; 85610; 85730; 86140; 87040; 87077; 87186; 87426; 87804; 93005; 94640; 94667; 96365; 96366; 96367; 96375; 99213; 99285; A9270; C9803; G0463; J0282; J0692; J2405; J2543; J3370; J7030; J7070; Q9967; U0003; U0005